=== PATIENT | female | born 1995 | race American Indian/Alaskan Native ===

== ENCOUNTER 2020-09-14 14:33 | Emergency (ER) | payer SELFPAY ==
[2020-09-14 14:40] VITALS: BP 180/96
--- NOTE | 2020-09-14 14:40 | Event Note ---
ED Screening Note ED Screening Note: cp sharp sob no fever pos chills rx none psh none pmh none lmp 12/2 mom and dad a/w no drugs This initial assessment/diagnostic orders/clinical plan/treatment(s) is/are subject to change based on patients health status, clinical progression and re- assessment by fellow clinical providers in the ED. Further treatment and workup at subsequent clinical providers discretion. Patient/guardian urged not to elope from the ED as their condition may be serious if not clinically assessed and managed. Initial orders include: ro cardiac/resp event ? gerd
[2020-09-14] MEDS ORDERED: FAMOTIDINE 20 MG TAB PO ONE (14:58)
[2020-09-14] MEDS ORDERED: LIDOCAINE VISCOUS 2% 15 ML ORAL LIQD PO ONE (14:58)
[2020-09-14] MEDS ORDERED: ALUM-MAG HYDROXIDE-SIMETHICONE 200-200-20MG/5ML ORAL LIQD 30 ML PO ONE (14:58)
--- NOTE | 2020-09-14 15:24 | XRay Report ---
CHEST 2 VIEWS INDICATION / CLINICAL INFORMATION: Chest pain with shortness of breath starting several days ago. COMPARISON: None available. FINDINGS: SUPPORT DEVICES: None. HEART / MEDIASTINUM: The heart size and pulmonary vasculature are normal. The aorta is normal in aust[place] shivam. LUNGS / PLEURA: No significant pulmonary or pleural abnormality. No pneumothorax. ADDITIONAL FINDINGS: No significant additional findings. IMPRESSION: No acute findings. Signer Name: Waldemar Castellanos MD Signed: 09/14/2020 3:20 PM Workstation Name: [id number]
--- NOTE | 2020-09-14 15:29 | Emergency Department Report ---
ED Abdominal Pain HPI - General Chief Complaint: Chest Pain Stated Complaint: CHEST PAIN/SOB PUI?: No Time Seen by Provider: 09/14/20 14:38 Source: patient Mode of arrival: Ambulatory Limitations: No Limitations - History of Present Illness Initial Comments: Patient is a 24-year-old -[place] female that comes to the ER c omplaining of what she calls chest pain, as she points to her epigastric area. This started after eating [employer] last night. She has no right upper quadrant pain. She has no nausea vomiting diarrhea. Patient denies fever or chills. She denies any back pain. Patient is ambulatory, and nonill nontoxic-appearing on exam in triage. Abdominal exam is unremarkable. -: Gradual, days(s) Location: epigastric Radiation: none Migration to: epigastric Quality: sharp Consistency: intermittent Improves With: nothing Worsens With: nothing Associated Symptoms: denies other symptoms - Related Data Previous Rx's Medication Instructions Recorded Last Taken Type Pantoprazole [Protonix] 40 mg PO QDAY #10 tablet 09/14/20 Unknown Rx Allergies Allergy/AdvReac Type Severity Reaction Status Date / Time Latex, Natural Rubber Allergy Itching Verified 09/14/20 14:35 ED Review of Systems ROS: Stated complaint: CHEST PAIN/SOB Other details as noted in HPI Comment: All other systems reviewed and negative ED Past Medical Hx - Past Medical History Previous Medical History?: No - Surgical History Past Surgical History?: No - Social History Smoking Status: Never Smoker Substance Use Type: None - Medications Home Medications: Home Medications Medication Instructions Recorded Confirmed Last Taken Type Pantoprazole [Protonix] 40 mg PO QDAY #10 tablet 09/14/20 Unknown Rx ED Physical Exam - General Limitations: No Limitations General appearance: alert, in no apparent distress - Head Head exam: Present: atraumatic, normocephalic - Eye Eye exam: Present: normal appearance - ENT ENT exam: Present: mucous membranes moist - Neck Neck exam: Present: normal inspection - Respiratory Respiratory exam: Present: normal lung sounds bilaterally. Absent: respiratory distress - Cardiovascular Cardiovascular Exam: Present: regular rate, normal rhythm. Absent: systolic murmur, diastolic murmur, rubs, gallop - GI/Abdominal GI/Abdominal exam: Present: soft, normal bowel sounds - Extremities Exam Extremities exam: Present: normal inspection - Back Exam Back exam: Present: normal inspection - Neurological Exam Neurological exam: Present: alert, oriented X3 - Psychiatric Psychiatric exam: Present: normal affect, normal mood - Skin Skin exam: Present: warm, dry, intact, normal color. Absent: rash ED Course Vital Signs 09/14/20 14:38 Temperature 98.7 F Pulse Rate 82 Respiratory 18 Rate Blood Pressure 180/96 O2 Sat by Pulse 96 Oximetry ED Medical Decision Making - EKG Data EKG shows normal: sinus rhythm Rate: normal - EKG Data When compared to previous EKG there are: no significant change Interpretation: no acute changes - Radiology Data Radiology results: report reviewed, image reviewed nap - Medical Decision Making Vital Signs (72 hours) 09/14/20 14:38 Temperature 98.7 F Pulse Rate 82 Respiratory 18 Rate Blood Pressure 180/96 O2 Sat by Pulse 96 Oximetry EKG with no acute process. Chest x-ray normal. Patient medicated with a GI cocktail with some relief. Patient educated on GERD. Patient is ambulatory nontoxic [id number]. She is taking p.o. Abdomen soft nontender. No CVA tenderness. Patient is being discharged home with PCP follow-up and a prescription for Protonix. Patient has been educated on diet, activity, follow-up. She verbalizes understanding. - Differential Diagnosis ro cardiac/resp etio v gerd Critical care attestation.: If time is entered above; I have spent that time in minutes in the direct care of this critically ill patient, excluding procedure time. ED Disposition Clinical Impression: GERD (gastroesophageal reflux disease) Disposition: - TO HOME OR SELFCARE Is pt being admited?: No Does the pt Need Aspirin: No Condition: Stable Instructions: Indigestion, [id number] Additional Instructions: bland diet avoid alcohol or cig smoking med as ordered today stay well hydrated follow up with pcp on Friday referral below Prescriptions: Pantoprazole [Protonix] 40 mg PO QDAY #10 tablet Referrals: HELENA HOLMAN MD [Staff Physician] - 3-5 Days Time of Disposition: 15:29
== END 2020-09-14 15:46 | disposition home or self-care (01) ==
LOC: ED 14:33
DX: K21.9 Gastro-esophageal reflux disease without esophagitis (principal); Z79.899 Other long term (current) drug therapy; Z91.040 Latex allergy status; Z88.8 Allergy status to other drugs, medicaments and biological substances
CPT/HCPCS: 71046; 93005; 99283